=== PATIENT | female | born 2000 | race African-American/Black ===

== ENCOUNTER 2021-10-04 07:11 | Inpatient (IN) | payer OTHER ==
[2021-10-04] VITALS (7 sets, daily range): BP systolic 111–123; BP diastolic 56–77
[~2021-10-04] VITALS: Ht 162.6 cm; Wt 85.2 kg
[2021-10-04] MEDS ORDERED: PRENTAB9 PO (08:07)
[2021-10-04] MEDS ORDERED: VALT500T PO (08:55)
[2021-10-04] MEDS ORDERED: HOME MED LIST COMPLETE! XX SCH (08:55)
[2021-10-04 09:25] LABS: HEMATOCRIT 35.4 % (36.0-47.0); HEMOGLOBIN 11.9 g/dl (12.0-15.5); MEAN CORPUSCULAR HEMOGLOBIN 31.8 pg (27.0-33.0); MEAN CORPUSCULAR HGB CONC 33.6 g/dl (32.0-36.5); MEAN CORPUSCULAR VOLUME 94.7 fl (80.0-96.0); PLATELET COUNT, AUTOMATED 342 10^3/uL (150-450); RED BLOOD COUNT 3.74 10^6/uL (4.00-5.40); WHITE BLOOD COUNT 8.4 10^3/uL (4.0-10.0)
[2021-10-04] MEDS ORDERED: PENICILLIN G POTASSIUM IV 5 MU in D5W MINI-BAG PLUS 100 ML IV STA (09:42)
[2021-10-04] MEDS ORDERED: LACTATED RINGER'S 1000 ML IV ONE (09:45)
[2021-10-04] MEDS ORDERED: METHYLERGONOVINE MALEATE 0.2 MG/ML VIAL (J2210) IM PRN (09:45)
[2021-10-04] MEDS ORDERED: OXYTOCIN INJ 10 UNITS/ML VIAL (J2590) IV PRN (09:45)
[2021-10-04] MEDS ORDERED: OXYTOCIN DRIP 30 UNITS in IV 1 EA IV PRN ×4 (09:45)
[2021-10-04] MEDS ORDERED: miSOPROStol 50MCG 1/2 TABLET PO ONE ×2 (09:45→16:55)
[2021-10-04] MEDS: LR 1,000 ML IV SCH ×2 (10:36→18:45)
--- NOTE | 2021-10-04 10:40 | HPEPDOC ---
Obstetrical History & Physical General Date of Admission Item Value Date Time White Blood Count 8.4 10^3/uL 10/04/21 0908 Red Blood Count 3.74 10^6/uL L 10/04/21 0908 Hemoglobin 11.9 g/dl L 10/04/21 0908 Hematocrit 35.4 % L 10/04/21 0908 Mean Corpuscular Volume 94.7 fl 10/04/21 0908 Mean Corpuscular Hemoglobin 31.8 pg 10/04/21 0908 Mean Corpuscular Hemoglobin Concent 33.6 g/dl 10/04/21 0908 Red Cell Distribution Width 13.4 % 10/04/21 0908 Platelet Count 342 10^3/uL 10/04/21 0908 Vital Signs Label Value Date Time Blood Pressure Assessment 120/77 (91) 10/04/21 0936 Source Automatic Cuff (NIBP) Respiratory Rate 16 bpm 10/04/21 0936 Pulse 92 10/04/21 0936 Patient Temperature 98.3 degrees F 10/04/21 0936 Temperature Source Temporal 10/04/21 0936 Oct 04, 2021 at 07:11 Primary Care Physician: Conor Inman MD History of Present Illness 10/04/21 20 yo AT 39.1 WEEKS BY EARLY US 9.0 WEEKS EDC 10/10/21 ADMITTED FOR IOL DUE TO POLYHYDRAMNIOS BY US OCCASIONAL CONTRACTIONS NO LOF Chief Complaint: Induction of labor Information Provided By: Patient Age: 20 : 1 Term: 0 Pre-term: 0 Abortions: 0 Livin Care Care: Good Care Number of Visits: 10 Dating Final EDC: Oct 10, 2021 Final EDC for Daily Update: Oct 10, 2021 Final EDC by: LMP LMP: Jan 03, 2021 1st Trimester Date: Mar 07, 2021 Weeks + Days: 9.0 Estimated Date of Confinement: Oct 10, 2021 EGA at Admission: 39.1 Antepartum Course Diagnos(e)s HX POLYHYDRAMNIOS AND POSSIBLE HSV EXPOSURE ON ZOVIRAX MEDS NO DOCUMENTED LESIONS Height (inches): 64 Pre- weight (lbs.): 168 Admission Weight (lbs.): 177 Change in Weight (lbs.): 9 Past Medical History Past Obstetrical History : 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 TPE 11 HYPERTENSION PGP HYPERTENSION Social History Social history TO AD NO VIOLENCE NO RISKY BEHAVIOR Marital Status: Family situation: Spouse/partner home Psychosocial History: No pertinent psych hx * Smoker: non-smoker Alcohol: Denies Drugs: denies Abuse Violence Screening Have you been hit/kicked/slapp: No Have you been sexually assault: No Imunizations Tdap status: current Influenza Status: current Allergies Coded Allergies: No Known Allergies (Verified Allergy, Unknown, 10/04/21) Medications Scheduled No.137/Iron/Folic Acd ( Vitamin Tablet) 1 Each Tablet, 1 TAB PO DAILY Valacyclovir HCl (Valtrex) 500 Mg Tablet, 1 TAB PO DAILY Physical Examination Physical Examination GENERAL: Alert and oriented times three. BREAST: . ABDOMEN: Gravid and non-tender to touch. FETUS: Is vertex (VTX) by sterile vaginal examination (SVE), fetus is vertex (VTX) by Shubham.POSTERIOR FT -3 STATION THICK CATAGORY 1 STRIP VERTEX HEART RATE: Regular rate and rhythm. LUNGS: Clear to auscultation (CTA). EXTREMITIES: No edema. No clonus. Deep tendon reflexes (DTRs) + . Other physical findings NORMOCEPHALIC ATRAUMATIC NECK SUPPLE PERRLA CHEST CLEAR TO BASES NO WHEEZE NO RHONCHI NO CVA TENDERNESS NO SOB. NO RASHES LESIONS OR PRURITUS ABDOMEN SOFT SF HEIGHT 39 WEEKS GEORGE LATENT 16.9 CM FLUID CATEGORY 1 STRIP WITH OCCASIONAL CONTRACTIONS NO R/V/D/C/F/ NO URGENCY FREQUENCY NO PADMINI NO ENDOCRINE ISSUES Vital Signs/I&O Vital Signs Date Time Temp Pulse Resp B/P (MAP) Pulse Ox O2 Delivery O2 Flow Rate FiO2 10/04/21 09:36 98.3 92 16 120/77 (91) Laboratory Data 24H LABS Laboratory Tests 2 10/04/21 08:37: Serology Scanned Report Hepatitis B Testing 10/04/21 09:08: Nucleated Red Blood Cells % (auto) 0.0 CBC/BMP Laboratory Tests 10/04/21 09:08 Pertinent Laboratoy Data Blood Type: O+ RBC Antibody Screen: Negative HIV: Negative Hepatitis B: Negative Rapid Plasma Reagin: Nonreactive Rubella: Immune Varicella: Immune Chlamydia/Gonorrhea: Negative Group B Streptococcus: Positive Quad Screen Test: Unknown Cystic Fibrosis: Negative Anatomy Ultrasound Ultrasound Date: Jun 03, 2021 Placenta Location: Anterior Normal Anatomy: Yes Estimated Weight (grams): 430 Other Ultrasounds 09/13/21 [id number] GRAMS GEORGE 18.82 CM Information CERVIX POSTERIOR FT THICK VERTEX -3 STATION Steroid Therapy Steroid Therapy: No Vaginal Examination Dilation: Fingertip Effacement: 50% Station: -3 Cervical Consistency: Firm Cervical Position: Posterior Presentation: Cephalic presentation Assessment Variability: Moderate Accelerations: Present Decelerations: None Tocometer Contractions: Yes Frequency: irregular Duration: less than 60 seconds Strength: palpated as mild Assessment/Plan Assessment 20-year-old (G)1 para (P)0 at 39.1 weeks by 9 -week ultrasound. Presents to Labor and Delivery (L&D) . ADMITTED IOL RE POLYHYDRAMNIOS Plan Admit and orient. 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 Diet: .KIRAN Group B Streptococcus (GBS) POSITIVE RX STARTED Labs and intravenous (IV) per unit protocol. Counseled on Pitocin and induction of labor (IOL). OR MISOPROSTOL PO Lactated Ringers (LR): Bolus 1000 mL, then at 125 mL/hr. Anticipate [normal spontaneous delivery ()]. C-S as appropriate. Labor and Delivery Counseling REVIEWED VAGINAL DELIVERY WITH ISSUE OF TACHYSYSTOLE UTERINE RUPTURED DISTRESS RE POLYHYDRAMNIOS AND IOL . REVIEWED ASSISTED VAGINAL DELIVERY WITH FORCEPS OR VACUUM WITH ISSUE OF CEPHALOHEMATOMA , ABRASION, LACERATION ADMISSION NICU RISK REPAIR VAGINAL REPAIRS TO PELVIC STRUCTURES RISK OF CS FOR MATERNAL OR INDICATIONS IF DELIVERY IS REMOTE RISK OF CS HEMORRHAGE INFECTION PERFORATION REOPERATION REMOTE BLOOD TRANSFUSION OR HYSTERECTOMY FOR LIFE THREATENING BLEEDING EXPRESSED UNDERSTANDING CATEGORY 1 STRIP SAFE TO PROCEED Conor Inman MD Oct 04, 2021 10:39
[2021-10-04] MEDS: PENICILLIN G POTASSIUM IV 2.5 MU in IV 1 EA IV SCH ×2 (15:03→18:46)
--- NOTE | 2021-10-04 16:54 | IPNPDOC ---
Text Note Date of Service The patient was seen on 10/04/21. NOTE 10/04/21 assessment 4 hours post misoprostol 50 mg category 1 strip moderate variability cervix unchanged will give 1 dose misoprostol. unable to negotiate for cook'S CATHETER safe to proceed VS,Fishbone, I+O VS, Fishbone, I+O Laboratory Tests 10/04/21 09:08 Vital Signs Date Time Temp Pulse Resp B/P (MAP) Pulse Ox O2 Delivery O2 Flow Rate FiO2 10/04/21 14:57 113 18 111/67 (82) 10/04/21 09:36 98.3 Conor Inman MD Oct 04, 2021 16:53
[2021-10-05] VITALS (9 sets, daily range): BP systolic 105–130; BP diastolic 53–86
[2021-10-05] MEDS ORDERED: miSOPROStol 50MCG 1/2 TABLET PO ONE ×2 (07:20→13:15)
--- NOTE | 2021-10-05 09:54 | IPN ---
PROGRESS NOTE DATE: 10/04/2021 TIME: 11:30 p.m. SUBJECTIVE: This lady is a 20-year-old 1 admitted at 39 and 1 weeks of gestation for polyhydramnios, induction of labor, having occasional contractions. Throughout the course of the day she has had two Misoprostol 50 mg PO, has had appropriate occasional tightening with category 1 strip and contractions appear to be adequate although the patient was not bothered by them, her pain threshold was like 3/10. OBJECTIVE: Examination after two Misoprostol there was still no change in her cervix. She was still posterior, -3 station. At this point she was having contractions but she was sleeping through. PLAN: Our plan was to allow her to sleep overnight and restart the induction of labor at 0600 with NST at 05:30 a.m. This seemed to be appropriate and the patient expressed understanding of plan of care. Prior to delivery the patient's antibiotics were discontinued, saline lock of the IV, monitor strip finally showing category 1 with minimal contractions.
--- NOTE | 2021-10-05 12:14 | IPN ---
PROGRESS NOTE DATE: 10/05/2021 This lady was admitted for induction of labor, suggestive of polyhydramnios. She had two lots of Misoprostol, had a few contractions, unchanged cervix over the last 24 hours. It was elected after the second lot of Misoprostol and no change in her cervix, not having actual painful contractions, she actually slept through them, that we would leave her overnight, repeat the Misoprostol PO and when the cervix was approachable a Urrutia bulb or Cook's catheter with Pitocin could be entertained. The patient had a category 1 strip, slept overnight. Presently she has a category 1 strip. We will have her eat breakfast and then reinstate the Misoprostol. The patient is aware of the plan of action. All questions were answered. Safe to proceed.
--- NOTE | 2021-10-05 13:23 | IPNPDOC ---
Text Note Date of Service The patient was seen on 10/05/21. NOTE 20 yo at 39+2 weeks gestation admitted for an IOL yesterday for apparent polyhydramnios. She has received numerous doses of cytotec. At the bedside Tatum overall reports feeling well. She has an occasional pelvic cramp but it is not severe nor consistent. Chaperoned by RN Vitals - VSS, afebrile, normotensive, non tachycardic Cervix - FT/thick/high, posterior FHR tracing - Cat I with moderate variability, +accels, no decels. Sporadic ctx on toco. Bedside TAUS ( anatomy not assessed): Cephalic presenting . GEORGE 17.4 cm. SDP fluid 5.3 cm. I discussed the plan moving forward with Tatum and her . She does not appear to have polyhydramnios at this time. status has remained reassuring. I offered continued IOL with another dose of cytotec around 1400 with goal being to attempt cook balloon later this evening. I do not believe I could place one through her cervix now. Given that she has no overt evidence of polyhydramnios at this time and status has remained reassuring, I also offered her discharge home with close follow up. After discussion Jamal desires to continue with her IOL at this time. At this point it would be considered elective. All patient and questions answered. Alfred LOZANO,John, I+O VS, John, I+O Vital Signs Date Time Temp Pulse Resp B/P (MAP) Pulse Ox O2 Delivery O2 Flow Rate FiO2 10/05/21 05:41 98.4 76 18 105/53 (70) I&O- Last 24 Hours up to 6 AM 10/05/21 06:00 Intake Total 1285 ml Balance 1285 ml LAURENCE CARPIO DO Oct 05, 2021 13:23
[2021-10-05] MEDS ORDERED: LR 1,000 ML IV SCH (20:25)
[2021-10-05] MEDS ORDERED: OXYTOCIN DRIP 30 UNITS in IV 1 EA IV SCH (20:25)
[2021-10-05] MEDS ORDERED: PROMETHAZINE INJ 25 MG/ML VIAL (J2550) IV PRN (20:25)
[2021-10-05] MEDS ORDERED: BUTORPHANOL 2 MG/ML INJ (J0595) IV PRN (20:25)
[2021-10-05] MEDS ORDERED: PENICILLIN G POTASSIUM IV 5 MU in D5W MINI-BAG PLUS 100 ML IV STA (20:40)
--- NOTE | 2021-10-05 20:40 | IPNPDOC ---
Text Note Date of Service The patient was seen on 10/05/21. NOTE Patient seen and examined at the bedside. Tatum reports feeling increased cramping. Though it is not consistent. Otherwise she has no complaints. Chaperoned by RN Vitals - VSS, afebrile, normotensive, non tachycardic Cervix - /-3. Cook balloon placed with 60ml saline intrauterine. FHR tracing - Cat I with moderate variability, +accels, no decels. Ctx sporadic and irregular. Good progress from last exam. PCN ordered to be started per protocol for GBS prophlaxis. Will add concurrent low dose pitocin. Stadol and phenergan PRN for pain. Candidate for epidural when in active labor. All patient questions answered. Alfred VS,John, I+O VS, John, I+O Vital Signs Date Time Temp Pulse Resp B/P (MAP) Pulse Ox O2 Delivery O2 Flow Rate FiO2 10/05/21 19:35 99.0 81 18 114/63 (80) I&O- Last 24 Hours up to 6 AM 10/05/21 06:00 Intake Total 1285 ml Balance 1285 ml LAURENCE CARPIO DO Oct 05, 2021 20:40
[2021-10-05] MEDS: LR 1,000 ML IV SCH (20:57)
[2021-10-06] VITALS (121 sets, daily range): BP systolic 97–141; BP diastolic 46–87
[2021-10-06] MEDS: PENICILLIN G POTASSIUM IV 2.5 MU in IV 1 EA IV SCH ×6 (01:03→21:00)
[2021-10-06] MEDS ORDERED: FENTANYL 2MCG/ML ROPIVACAINE 0.2% IN 0.9% NACL 100ML IVBAG As Ordered ONE (02:29)
[2021-10-06] MEDS ORDERED: EPIDURAL/PCA KEYS XX PRN (02:40)
[2021-10-06] MEDS ORDERED: ONDANSETRON 4MG/2ML VIAL IV PRN ×2 (02:40→22:30)
[2021-10-06] MEDS ORDERED: NALOXONE INJ 0.4MG/1ML VIAL (J2310 PER 1MG) IV PRN (02:40)
[2021-10-06] MEDS ORDERED: diphenhydrAMINE 50MG/ML VIAL (J1200) IV PRN (02:40)
[2021-10-06] MEDS ORDERED: EPIDURAL COMMENT XX SCH (02:40)
[2021-10-06] MEDS ORDERED: REFRIGERATOR IV KEYS XX PRN (02:40)
[2021-10-06] MEDS: LR 1,000 ML IV SCH ×5 (03:39→16:12)
[2021-10-06] MEDS: FENTANYL/ROPIVACAINE/NACL BAG 100 ML EPIDURAL SCH ×2 (03:39→14:30)
[2021-10-06] MEDS: ePHEDrine SULFATE 25 MG/5 ML(5MG/ML) SYRINGE IV PRN ×3 (03:44→04:45)
[2021-10-06] MEDS: LACTATED RINGER'S 1000 ML IV PRN ×2 (04:31→12:00)
--- NOTE | 2021-10-06 05:48 | IPNPDOC ---
Text Note Date of Service The patient was seen on 10/06/21. NOTE Called to room as patient was having recurrent late decelerations. She underwent SROM, clear fluid, at ~0000. She received an epidural at ~0300 and has had intermittent late decels since then. She has been hypotensive and received IV fluid boluses and multiple doses of ephedrine. Pitocin as stopped. Positional changes have been initiated and she has been started on O2. Anesthesia has been notified and is assessing Tatum as well.. In the room Tatum reports feeling well. She denies any pain. Vitals - BPs (90-100)/(40-60) Cervix: 5/90/-2. FSE applied. FHR acceleration with scalp stimulation. FHR tracing - Cat II with moderate variability, intermittent late decels, +accels with exam. Ctx Q3-4 mins. Suspect hypotension contributing to FHR decels. This has been treated. Will allow period of rest and recovery with pitocin off. Jamal has been progressing well into active labor. Continue to monitor closely. All patient and questions answered. Alfred VS,John, I+O VS, John, I+O Vital Signs Date Time Temp Pulse Resp B/P (MAP) Pulse Ox O2 Delivery O2 Flow Rate FiO2 10/06/21 02:46 80 141/83 (102) 10/06/21 00:32 98.6 18 10/05/21 21:54 Room Air I&O- Last 24 Hours up to 6 AM 10/06/21 06:00 Intake Total 2546.5 ml Output Total 750 ml Balance 1796.5 ml LAURENCE CARPIO DO Oct 06, 2021 05:48
--- NOTE | 2021-10-06 13:39 | IPNPDOC ---
Obstetrical Progress Note Date of Service Oct 06, 2021 Subjective Tatum is comfortable with her contractions, states epidural is working well. Objective Vital Signs Date Time Temp Pulse Resp B/P (MAP) Pulse Ox O2 Delivery O2 Flow Rate FiO2 10/06/21 11:12 98.8 84 18 123/74 (90) 10/05/21 21:54 Room Air Assessment Heart Rate (FHR): 130 Variability: Moderate Accelerations: Positive Decelerations: None Heart Rate Tracing: Category I Tocometer Contractions: Yes Frequency: regular, every 2-5 min. Sterile Vaginal Examination Dilation: 8 cm Effacement (%): 90% Station: -1 Cervical Consistency: Soft Cervical Position: Anterior Postion/Presentation: Cephalic presentation Assessment and Plan Age: 20 : 1 Term: 0 Pre-term: 0 Abortions: 0 Livin Weeks & Days 39+3 Status: Reassuring Group B Streptococcus: Positive Anticipate: Vaginal Delivery Additional Comments category I tracing, change since last exam this morning. GBS adequately treated. afebrile, normotensive. ruddy regularly currently without augmentation -routine intrapartum care -reevaluate labor in 2-4 hours or as needed JONNY HERNANDEZ DO Oct 06, 2021 13:39
--- NOTE | 2021-10-06 16:09 | IPNPDOC ---
Obstetrical Progress Note Date of Service Oct 06, 2021 Subjective Tatum is again comfortable with her contractoins, denies any complaints. Objective Vital Signs Date Time Temp Pulse Resp B/P (MAP) Pulse Ox O2 Delivery O2 Flow Rate FiO2 10/06/21 14:33 99.7 18 10/06/21 14:20 72 121/71 (88) 10/05/21 21:54 Room Air Assessment Heart Rate (FHR): 140 Variability: Moderate Accelerations: Positive Decelerations: None Heart Rate Tracing: Category I Tocometer Contractions: Yes Frequency: regular, every 3-7 min. Sterile Vaginal Examination Dilation: 8 cm Effacement (%): 90% Station: -1 Cervical Position: Anterior Postion/Presentation: Cephalic presentation Assessment and Plan Age: 20 : 1 Term: 0 Pre-term: 0 Abortions: 0 Livin Weeks & Days 39+3 Status: Reassuring Group B Streptococcus: Positive Anticipate: Vaginal Delivery Additional Comments No change since last exam, still 8cm. IUPC placed with no resistance, confirmed intrauterine via cough. Discussed with patient use of intruterine pressure catheter to measure strength of contractions and addition of pitocin if inadequate. Previously the pitocin had to be stopped due to intolerance, discussed with patient we will augment as much as possible without compromising the baby. She is aware that if no progress at next check around 4-6 hours I will recommend delivery for arrest of dilation. All questions answered and she indicated understanding. DO MARY Chamorro BRADLEY J. DO Oct 06, 2021 16:09
[2021-10-06] MEDS: DOCUSATE SODIUM 100MG CAPSULE PO PRN (21:00)
[2021-10-06] MEDS ORDERED: LIDOCAINE 1% MDV 20ML VIAL As Ordered ONE (21:42)
[2021-10-06 22:14] LABS: CORD GAS ABE V -6.4; CORD GAS HCO3 V 21.4 MEQ/L; CORD GAS PCO2 V 51.7 mmHg; CORD GAS PH V 7.235 UNITS; CORD GAS PO2 V 31.1 mmHg; CORD GAS SBC V 18.6 MEQ/L
[2021-10-06 22:17] LABS: CORD GAS ABE A QNS; CORD GAS HCO3 A QNS MEQ/L; CORD GAS PCO2 A QNS mmHg; CORD GAS PH A QNS UNITS; CORD GAS PO2 A QNS mmHg; CORD GAS TCO2 A QNS MEQ/L
[2021-10-06 22:18] LABS: CORD GAS O2 SAT A QNS %; CORD GAS SBC A QNS MEQ/L
--- NOTE | 2021-10-06 22:27 | DNPDOC ---
[facility] Delivery Note Delivery Note DATE OF DELIVERY: 06OCT2020 PREDELIVERY DIAGNOSIS: 39+3 weeks gestation, IOL at term POST DELIVERY DIAGNOSIS: Delivered. 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 FINDINGS: 7 pound 5 ounce 3330g , Score 8/9 DELIVERY SUMMARY: Tatum Alejo is a 20yo [id number]. I entered the room for a cervical exam and she was found to be completely dilated at -1 station. A test push was performed with good descent. Occasional late decelerations with pushing which would resolve; moderate variability was maintained as well as accelerations. Over the next 30 minutes continued progress with pushing. The head delivered OA and restituted TARUN. The anterior shoulder delivered without difficulty followed by the posterior shoulder and corpus. The was placed on the maternal abdomen and dried/suctioned/stimulated with good cry noted. Cord blood as well as venous and arterial gases were obtained. The placenta then delivered spontaneously and intact with a 3-vessel centrally inserted cord. The uterus was massaged bimanually until firm. Pitocin bolused. Inspection of the perineum revealed a 1cm tear between the clitoris and the urethra. A straight catheter was placed to delineate the urethra during the repair which was accomplished with one interrupted 3-0 vicryl and a running 4-0 vicryl suture. An additional left labial tear was repaired with running 4-0 vicryl. There was initially rather brisk bleeding from the periclitoral tear; afterwards hemostasis was noted. All counts were correct. Mother. father and baby were bonding appropriately. Pitocin to run for 4 hours at 125mL/hr. DO MARY Chamorro BRADLEY J. DO Oct 06, 2021 22:27
[2021-10-06] MEDS ORDERED: PROMETHAZINE 25 MG TAB PO PRN (22:30)
[2021-10-06] MEDS ORDERED: MEASLES,MUMPS,RUBELLA VACCINE INJ (MMR-II) (90707) SC SCH (22:30)
[2021-10-06] MEDS ORDERED: RHOGAM 300 MCG (1500 IU) INJ (J2790) IM SCH (22:30)
[2021-10-06] MEDS ORDERED: LR 1,000 ML IV SCH (22:30)
[2021-10-06] MEDS ORDERED: LIDOCAINE 1% MDV 20ML VIAL INFIL ONE (22:30)
[2021-10-06] MEDS ORDERED: METHYLERGONOVINE MALEATE 0.2 MG TAB PO PRN (22:30)
[2021-10-06] MEDS ORDERED: DIBUCAINE 1% OINTMENT 30GM TOP PRN (22:30)
[2021-10-07 00:30] VITALS: BP 124/66
[2021-10-07] MEDS: ACETAMINOPHEN 500 MG TAB PO SCH ×4 (01:00→19:53)
[2021-10-07] MEDS: IBUPROFEN 800 MG TAB PO SCH ×4 (01:00→23:11)
[2021-10-07 06:00] VITALS: BP 116/60
--- NOTE | 2021-10-07 06:56 | IPNPDOC ---
Progress Note Date of Service: Oct 07, 2021 Day#: 1 Progress Note SUBJECT: Tatum Alejo is a 20-year-old 1 now Para 1001 status post u ncomplicated spontaneous vaginal delivery at 39+3 weeks' at approximately 2114 hours on 06OCT2020 of a female 7 pounds 5 ounces (3330 grams) with periclitoral/periurethral laceration and repair, doing well day # 1. She has been ambulating, voiding spontaneously without issue and tolerating regular diet. Breast feeding without issue. Reports lochia is moderate, denies soaking pads however. OBJECTIVE: VITAL SIGNS: Within normal limits, afebrile. Alert and oriented times three. Nonlabored breathing Heart rate: Regular rate Abdomen: Fundus firm at U-2. Soft, NTTP. Negative calf tenderness bilaterally ASSESSMENT: As above, doing well on day 1. Vitals within normal limits, afebrile, hemodynamically stable with no evidence of infection. PLAN: 1. Discharge to home likely tomorrow 2. Tylenol and Motrin for pain. 3. Encourage breast feeding and ambulation. 4. Routine PP visit in 6 weeks in clinic. VS, I&O, 24H, Fishbone Vital Signs/I&O Vital Signs Date Time Temp Pulse Resp B/P (MAP) Pulse Ox O2 Delivery O2 Flow Rate FiO2 10/07/21 06:00 97.5 85 18 116/60 (78) 10/05/21 21:54 Room Air I&O- Last 24 Hours up to 6 AM 10/07/21 06:00 Intake Total 7220.5 ml Output Total 4900 ml Balance 2320.5 ml Laboratory Data 24H LABS Laboratory Tests 2 10/06/21 21:20: Cord Arterial Blood pH , Cord Arterial Blood PCO2 , Cord Arterial Blood PO2 , Cord Arterial Blood HCO3 , Cord Arterial Blood Total CO2 , Cord Arterial Blood Base Excess , Cord Arterial Base Excess (Standard , Cord Arterial Bld Oxygen Saturation , Cord Venous Blood pH 7.235, Cord Venous Blood PCO2 51.7, Cord Venous Blood PO2 31.1, Cord Venous Blood HCO3 21.4, Cord Venous Blood Total CO2 23.0, Cord Venous Base Excess (Actual) -6.4, Cord Venous Base Excess (Standard) 18.6, Cord Venous Blood Oxygen Saturation 67.0 Microbiology Microbiology 10/04/21 Herpes Simplex Virus Culture, Received Pending JONNY HERNANDEZ DO Oct 07, 2021 06:56
[2021-10-07 08:04] LABS: HEMATOCRIT 28.9 % (36.0-47.0); HEMOGLOBIN 9.5 g/dl (12.0-15.5); MEAN CORPUSCULAR HEMOGLOBIN 31.6 pg (27.0-33.0); MEAN CORPUSCULAR HGB CONC 32.9 g/dl (32.0-36.5); PLATELET COUNT, AUTOMATED 289 10^3/uL (150-450); RED BLOOD COUNT 3.01 10^6/uL (4.00-5.40); WHITE BLOOD COUNT 13.8 10^3/uL (4.0-10.0)
[2021-10-07] MEDS: PRENATAL VITAMINS CHEWABLE TABLET PO SCH (08:41)
[2021-10-07] MEDS ORDERED: PRENATAL VITAMINS CHEWABLE TABLET PO SCH (09:00)
[2021-10-07 18:09] VITALS: BP 116/56
[2021-10-07] MEDS: DOCUSATE SODIUM 100MG CAPSULE PO PRN (20:05)
[2021-10-08] MEDS: ACETAMINOPHEN 500 MG TAB PO SCH ×3 (06:24→14:04)
[2021-10-08 06:28] VITALS: BP 137/77
[2021-10-08] MEDS ORDERED: IBUP80TA PO (06:52)
[2021-10-08] MEDS ORDERED: DIBU28OI2 TOP (06:52)
[2021-10-08] MEDS ORDERED: ACET-683 PO (06:52)
--- NOTE | 2021-10-08 06:58 | DS.PDOC ---
Discharge Summary General Date of Admission Oct 04, 2021 at 07:11 Date of Discharge Oct 08, 2021 Discharge Summary HOSPITAL COURSE: Ms. Alejo is a 20 yo G1 now P1 who underwent an uncomplicated on 06Oct2021 after being admitted for an IOL. Her course was unremarkable. On her day of discharge she met all appropriate discharge criteria. She was ambulating, voiding, tolerating a regular diet, and had minimal lochia. DISCHARGE MEDICATIONS: Please see below. ALLERGIES: Please see below. PHYSICAL EXAMINATION ON DISCHARGE: VITAL SIGNS: Please see below. GENERAL: AAOX3, NAD ABDOMINAL EXAMINATION: Fundus firm at U-2. No fundal tenderness EXTREMITIES: No edema PSYCHIATRIC EXAMINATION: Affect appropriate LABORATORY DATA: Please see below. ACTIVITY: Pelvic rest for 6 weeks DIET: Regular DISCHARGE PLAN: Discharge home DISPOSITION: Discharge home on 08Oct2021. DISCHARGE INSTRUCTIONS: 1. Nothing in the vagina for 6 weeks ITEMS TO FOLLOWUP ON ON OUTPATIENT: 1. Call to schedule a visit for 6 weeks post delivery DISCHARGE CONDITION: Stable. TIME SPENT ON DISCHARGE: Greater than 20 minutes. Laurence Simon DO Vital Signs/I&Os Vital Signs Date Time Temp Pulse Resp B/P (MAP) Pulse Ox O2 Delivery O2 Flow Rate FiO2 10/08/21 06:28 98.7 95 18 137/77 (97) 10/05/21 21:54 Room Air Laboratory Data Labs 24H Laboratory Tests 2 10/07/21 07:20: Nucleated Red Blood Cells % (auto) 0.0 CBC/BMP Laboratory Tests 10/07/21 07:20 Microbiology Microbiology 10/04/21 Herpes Simplex Virus Culture - Final, Complete Discharge Medications Scheduled Acetaminophen (Acetaminophen) 500 Mg Tablet, 1,000 MG PO Q6H Ibuprofen (Ibuprofen) 800 Mg Tablet, 800 MG PO Q8H No.137/Iron/Folic Acd ( Vitamin Tablet) 1 Each Tablet, 1 TAB PO DAILY, (Reported) Scheduled PRN Dibucaine (Dibucaine) 28 Gm Oint...g., 0 DOSE TOP Q4H PRN for pp Allergies Coded Allergies: No Known Allergies (Verified Allergy, Unknown, 10/04/21) LAURENCE SIMON DO Oct 08, 2021 06:58
[2021-10-08] MEDS: PRENATAL VITAMINS CHEWABLE TABLET PO SCH (08:16)
[2021-10-08] MEDS: IBUPROFEN 800 MG TAB PO SCH (08:16)
--- NOTE | 2021-10-08 09:14 | IPN ---
PROGRESS NOTE DATE: 10/07/2021 This patient requested circumcision of her male . After discussing risks and benefits of circumcision, the medical and non-medical indications, the penile block and aftercare expressed understanding of penile block, aftercare and bleeding, signed the consent form. All questions were answered; 20-minute discussion. We await clearance by the attendant lodging facilities. Violeta Jones OB
== END 2021-10-08 15:20 | disposition home or self-care (01) | DRG 807 ==
LOC: M LDI 07:11 → M OBS 10-07 01:43
PROVIDERS: ADMIT Obstetrics & Gynecology; ATTEND Obstetrics & Gynecology
PROC: 3E0P7GC Introduction of Other Therapeutic Substance into Female Reproductive, Via Natural or Artificial Opening (ICD-10-PCS; 2021-10-04)
PROC: 10E0XZZ Delivery of Products of Conception, External Approach (ICD-10-PCS; principal; 2021-10-06)
PROC: 0UQMXZZ Repair Vulva, External Approach (ICD-10-PCS; 2021-10-06)
PROC: 0HQ9XZZ Repair Perineum Skin, External Approach (ICD-10-PCS; 2021-10-06)
DX: O40.3XX0 Polyhydramnios, third trimester, not applicable or unspecified (principal); Z37.0 Single live birth; Z3A.39 39 weeks gestation of pregnancy; O99.824 Streptococcus B carrier state complicating childbirth; O26.53 Maternal hypotension syndrome, third trimester; O76 Abnormality in fetal heart rate and rhythm complicating labor and delivery; O71.82 Other specified trauma to perineum and vulva; O70.0 First degree perineal laceration during delivery